=== PATIENT | female | born 1995 | race Two or more races ===

== ENCOUNTER 2020-03-08 13:49 | Emergency (ER) | payer SELFPAY ==
[~2020-03-08] VITALS: Ht 165.1 cm; Wt 113.0 kg
[2020-03-08 14:09] VITALS: BP 168/77
[2020-03-08] MEDS ORDERED: METR500T PO (15:43)
--- NOTE | 2020-03-08 15:44 | PHYS DOC ---
Past Medical History Past Medical History: No Pertinent History Past Surgical History: No Surgical History Smoking Status: Former Smoker Alcohol Use: Occasionally General Adult EDM: Chief Complaint: FOREIGN BODY VAGINA HPI: HPI: Patient is a 24 year old AA female who presents to the emergency department with complaints of a retained tampon in her vagina for the last 2 days. She denies any abnormal vaginal discharge or odor prior to realizing she had a re tained tampon. She denies any abdominal pain, pelvic pain, back pain, dysuria, hematuria, increased urinary frequency, fever, cough, or shortness of breath. The patient currently denies any pain. She reports that she is currently on her menstrual cycle. Review of Systems: Review of Systems: Constitutional: Denies fever or chills. [] HENT: Denies nasal congestion or sore throat. [] Respiratory: Denies cough or shortness of breath. [] GI: Denies abdominal pain, nausea, or vomiting : Denies dysuria; see HPI. [] Musculoskeletal: Denies back pain Psychiatric: Denies depression or anxiety. [] Heart Score: Risk Factors: Risk Factors: DM, Current or recent (<one month) smoker, HTN, HLP, family history of CAD, obesity. Risk Scores: Score 0 - 3: 2.5% MACE over next 6 weeks - Discharge Home Score 4 - 6: 20.3% MACE over next 6 weeks - Admit for Clinical Observation Score 7 - 10: 72.7% MACE over next 6 weeks - Early Invasive Strategies Allergies: Allergies: Allergies Coded Allergies Type Severity Reaction Last Updated Verified No Known Drug Allergies 03/08/20 No Physical Exam: PE: Constitutional: Well developed, well nourished, no acute distress, non-toxic appearance, morbidly obese. HENT: Normocephalic, atraumatic, bilateral external ears normal, nose normal. Eyes: PERRLA, EOMI, conjunctiva normal, no discharge. Neck: Normal range of motion, no stridor. Cardiovascular: Heart rate regular rhythm Lungs & Thorax: Respirations even and unlabored, no retractions, no respiratory distress Pelvic Exam: [employer] present Mag RN Abdomen: Nontender, soft External Genitalia: Normal Skin Speculum: Normal vaginal mucosa, bloody cervical discharge; retained malodorous tampon in vaginal vault Bimanual: No adnexal masses or tenderness, No CMT Skin: Warm, dry, no erythema, no rash. Back: No tenderness Extremities: No cyanosis, ROM intact, no edema. Neurologic: Alert and oriented X 3, no focal deficits noted. Psychologic: Affect normal, judgement normal, mood normal. Current Patient Data: Labs: Microbiology 03/08/20 Wet Prep - Final, Complete Vital Signs: Vital Signs Date Time Temp Pulse Resp B/P (MAP) Pulse Ox O2 Delivery O2 Flow Rate FiO2 03/08/20 14:09 98.8 75 18 168/77 (107) 100 Room Air 98.8 EKG: EKG: [] Radiology/Procedures: Radiology/Procedures: [] Course & Med Decision Making: Course & Med Decision Making Pertinent Labs and Imaging studies reviewed. (See chart for details) [] Dragon Disclaimer: Dragon Disclaimer: This electronic medical record was generated, in whole or in part, using a voice recognition dictation system. Departure Departure Impression: Primary Impression: Retained tampon Qualified Codes: T19.2XXA - Foreign body in vulva and vagina, initial encounter Additional Impression: Bacterial vaginosis Disposition: 01 HOME, SELF-CARE Condition: STABLE Referrals: KARLA GUARDADO MD Patient Instructions: Bacterial Vaginosis, [id number] Additional Instructions: Fill the prescription and use it as directed. Follow-up with your ENTRY LEVEL ACCOUNTING CLERK or Dr. Guardado if symptoms persist, return to the ER if symptoms worsen. Scripts Metronidazole (FLAGYL) 500 Mg Tablet 1 TAB PO BID, #14 TAB Prov: LANI STEVE APRN 03/08/20 Justicifation of Admission Dx: Justifications for Admission: Justification of Admission Dx: N/A LANI STEVE APRN Mar 08, 2020 15:44
[2020-03-09 21:07] LABS: GC PROBE Negative (Negative)
== END 2020-03-08 16:01 | disposition home or self-care (01) ==
LOC: ER 13:49
DX: T19.2XXA Foreign body in vulva and vagina, initial encounter (principal); Z87.891 Personal history of nicotine dependence; N76.0 Acute vaginitis; B96.89 Other specified bacterial agents as the cause of diseases classified elsewhere; X58.XXXA Exposure to other specified factors, initial encounter; Y93.89 Activity, other specified; Y92.89 Other specified places as the place of occurrence of the external cause; Y99.8 Other external cause status
CPT/HCPCS: 87491; 87591; 99284; Q0111